=== PATIENT | female | born 1995 | race Caucasian/White ===

== ENCOUNTER 2019-09-26 10:42 | Emergency (ER) | payer OTHER ==
[~2019-09-26] VITALS: Ht 154.9 cm; Wt 54.4 kg
[2019-09-26 10:45] VITALS: BP_SYST 154
--- NOTE | 2019-09-26 10:45 | NUR ---
Patient to ER bed 1 to gown for evaluation. Side rails up.
--- NOTE | 2019-09-26 10:50 | NUR ---
PT CAME TO ER AFTER AN ALLERGIC REACTINO TO AMOXICILLIN. MEDICS GAVE 50MG BENADRYL IV PT NO LONGER PRESENTS WITH RASH OR HIVES. RESTING IN GURNEY COMFORTABLY
--- NOTE | 2019-09-26 11:07 | NUR ---
JACKIE Vásquez at bedside examining patient.
[2019-09-26] MEDS ORDERED: NACL 0.9% 1,000 ML IV ONE (11:30)
[2019-09-26] MEDS ORDERED: IBUPROFEN 600 MG TABLET PO ONE (11:30)
--- NOTE | 2019-09-26 11:45 | NUR ---
PT RESTING IN GURTYREL, FATHER AT BEDSIDE. 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
[2019-09-26 11:54] LABS: BASOPHILS % (AUTO) 0.6 % (0.0-2.0); EOSINOPHILS # (AUTO) 0.1 K/uL (0.0-0.4); EOSINOPHILS % (AUTO) 0.7 % (0.0-4.0); HEMATOCRIT 42.2 % (36-48); HEMOGLOBIN 14.2 g/dL (12.0-16.0); LYMPHOCYTES # (AUTO) 2.4 K/uL (1.0-5.5); LYMPHOCYTES % (AUTO) 32.6 % (20.5-51.5); MEAN CORPUSCULAR HEMOGLOBIN 30 pg (27-31); MEAN CORPUSCULAR HGB CONC 34 % (32-36); MEAN CORPUSCULAR VOLUME 88 fL (79.0-98.0); MONOCYTES # (AUTO) 0.6 K/uL (0.0-1.0); MONOCYTES % (AUTO) 7.7 % (1.7-9.3); NEUTROPHILS # (AUTO) 4.3 K/uL (1.8-7.7); NEUTROPHILS % (AUTO) 58.4 % (40.0-70.0); PLATELET COUNT (AUTO) 202 K/uL (130-430); RED BLOOD CELL COUNT(AUTO) 4.78 MIL/uL (4.2-6.2); RED CELL DISTRIBUTION WIDTH 13.1 % (9.0-15.0); WHITE BLOOD COUNT (AUTO) 7.4 K/uL (4.8-10.8)
[2019-09-26 11:58] LABS: ANION GAP 7 (5-15); CALCIUM 8.8 mg/dL (8.4-11.0); CHLORIDE 106 mmol/L (98-107); CREATININE 0.92 mg/dL (0.55-1.30); GLUCOSE 108 mg/dL (70-99); POTASSIUM 3.5 mmol/L (3.5-5.1); SODIUM SERUM 140 mmol/L (136-145); UREA NITROGEN, BLOOD 10 mg/dL (8-21)
[2019-09-26 11:59] LABS: GFR AFRICAN AMERICAN 98 mL/min (>90)
[2019-09-26 12:03] LABS: ALANINE AMINOTRANSFERASE 22 U/L (12-78); ALBUMIN 3.7 g/dL (3.4-4.8); ASPARTATE AMINOTRANSFERASE 16 U/L (10-37); TOTAL BILIRUBIN 0.4 mg/dL (0.0-1.0)
[2019-09-26 12:22] LABS: BILIRUBIN,URINE NEGATIVE (NEGATIVE); BLOOD, URINE NEGATIVE (NEGATIVE); CLARITY/URINE CLEAR (CLEAR); COLOR,URINE YELLOW (YELLOW); GLUCOSE,URINE NEGATIVE (NEGATIVE); KETONES,URINE NEGATIVE (NEGATIVE); LEUKOCYTE ESTERASE ,URINE NEGATIVE (NEGATIVE); NITRITE, URINE NEGATIVE (NEGATIVE); PROTEIN URINE NEGATIVE (NEGATIVE); UROBILINOGEN,URINE 0.2 (0.2-1.0)
[2019-09-26 12:50] VITALS: BP_SYST 119
--- NOTE | 2019-09-26 12:50 | NUR ---
Patient given written and verbal discharge instructions and verbalizes understanding. ER MD discussed with patient the results and treatment provided. Patient in stable condition. ID arm band removed. IV catheter removed intact and dressing applied, no active bleeding. Rx of PREDNISON given. Patient educated on pain management and to follow up with PMD. Pain Scale 3. Opportunity for questions provided and answered. Medication side effect fact sheet provided.
== END 2019-09-26 12:50 | disposition home or self-care (01) ==
LOC: SED 10:42
DX: R06.02 Shortness of breath (principal); R05 Cough; R09.81 Nasal congestion
CPT/HCPCS: 36415; 71045; 80053; 81003; 83605; 84484; 85025; 85379; 86710; 87040; 87086; 93005; 99285; J7030